=== PATIENT | female | born 1965 | race Caucasian/White ===

== ENCOUNTER 2024-04-07 18:52 | Emergency (ER) | payer BC, SELFPAY ==
[2024-04-07 19:09] VITALS: BP 123/91
--- NOTE | 2024-04-07 19:14 | ED.PDOC.TRB ---
ED Provider Triage
-
Patient seen by provider in Triage?: Seen in Triage
Attestation: A medical screening examination has been initiated by a qualified medical provider. Based on the assessment performed at this time, it has been determined that an emergent medical condition may exist and the patient has been informed
that further medical evaluation and possible additional diagnostic testing may be needed.
HPI: 58yoF here with UTI symptoms x 1 month. Initially prescribed Bactrim by PCP. Went to urgent care 03/26/24 and prescribed Macrobid with temporary relief. Seen by PCP office today and told to go to the ED. C/o frequency, lower abdominal pain, and
intermittent back pain. She is concerned she may have a kidney stone. No fevers, chills, vomiting.
GENERAL: Alert , in no apparent distress
EYE: No visual abnormalities.
NECK: Trachea midline
ENT: No visible abnormalities.
LUNGS: No acute respiratory distress
NEUROLOGICAL: Alert and oriented
SKIN: Skin intact. No visible changes.
MUSCULOSKELETAL: Moving extremities normally
PSYCH: Normal and appropriate interaction.
This is a medical evaluation conducted in person to initiate diagnostic evaluation and provide initial therapeutics. Please see further documentation by the treating clinician.
CBC, CMP, UA, and CT abdomen ordered.
[2024-04-07 19:43] LABS: % Basophils 0.5 % (0-2); % Eosinophils 1.1 % (0-6); % Immature Granulocytes 0.3 % (0-0.5); % Lymphocytes 32.2 % (20.5-51.1); % Monocytes 5.9 % (1.7-9.3); Absolute Basophils 0.1 10^3/uL (0-0.2); Absolute Eosinophils 0.1 10^3/uL (0-0.7); Absolute Lymphocytes 3.4 10^3/uL (1.2-3.4); Absolute Monocytes 0.6 10^3/uL (0.1-0.6); Absolute Neutrophils 6.3 10^3/uL (1.4-6.5); Hematocrit 39.3 % (37.0-47.0); Hemoglobin 13.4 g/dL (12.0-16.0); Mean Corp Hgb Conc. 34.1 g/dL (33.0-37.0); Mean Corpuscular Hgb 29.5 pg (27.0-31.0); Mean Corpuscular Volume 86.6 fL (81.0-99.0); Mean Platelet Volume 10.1 fL (7.4-10.4); Nucleated Red Blood Cells % 0 %; Platelet Count 356 10^3/uL (130-400); Red Blood Cell Count 4.54 10^6/uL (4.20-5.40); Red Cell Dist. Width 13.2 % (11.5-14.5); Urine Albumin Negative (Neg - Trace); Urine Bilirubin Negative (Negative); Urine Character Clear (Clear); Urine Color Yellow; Urine Glucose Negative (Negative); Urine Ketone Negative (Negative); Urine Leukocyte 2+ (Negative); Urine Nitrite Positive (Negative); Urine Occult Blood 4+ (Negative); Urine Urobilinogen Negative (Neg - 1+); White Blood Cell Count 10.5 10^3/uL (4.8-10.8)
[2024-04-07 19:53] LABS: Urine Bacteria Moderate (Negative); Urine White Cell 50-60 /HPF (0-5)
[2024-04-07 20:04] LABS: ALT (SGPT) 17 U/L (0-35); AST (SGOT) 17 U/L (14-36); Albumin 4.2 g/dl (3.5-5.0); Alkaline Phosphatase 128 U/L (38-126); Blood Urea Nitrogen 19 mg/dl (7-17); Carbon Dioxide 26 mmol/L (22-30); Chloride 101 mmol/L (98-107); Glucose 97 mg/dl (70-99); Potassium 3.6 mmol/L (3.5-5.1); Sodium 139 mmol/L (135-145); Total Bilirubin 0.4 mg/dl (0.2-1.3); Total Protein 6.7 g/dl (6.3-8.2); eGFR > 60.00
[2024-04-07 21:11] VITALS: BMI 40.2
[2024-04-07 21:12] VITALS: BP 125/58
--- NOTE | 2024-04-07 21:38 | ED.GENMED ---
History of Present Illness
General
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
Source: patient
Time Seen by Provider: 04/07/24 21:29
History of Present Illness
History of Present Illness:
58yoF with a history of hypertension presenting for evaluation of UTI symptoms x 1 month. She reports being diagnosed with a UTI on 03/04/2024 by her PCP. She was prescribed Bactrim at that time which she completed. Symptoms seem to improve but
then recurred. She was seen at urgent care last week and was again diagnosed with a UTI and placed on Macrobid. She had temporary improvement but symptoms have returned. She was also prescribed Diflucan at some point for a possible yeast
infection. Her symptoms improved with Pyridium. She was again seen at her PCP office today although was not seen by a provider. She was told by the nurse to go to the ED for evaluation. Patient reports dysuria, urinary frequency, and lower
abdominal pain/pressure. She denies any vaginal bleeding, vaginal discharge, vomiting, fevers. She denies any concern for STDs.
Phy Exam
General Physical Exam
General Presentation: well appearing and no apparent distress
General age: appears stated age
General Skin: warm and dry
General Habitus: normal
General Mental: alert
ENT Exam
ENT Exam: normocephalic
Cardiovascular Exam
Cardiovascular Exam: regular rate/rhythm
Pulmonary Exam
Pulmonary Exam: lungs clear, no respiratory distress, no rales, no crackles and no wheezing
Gastrointestinal Exam
Gastrointestinal Exam: non tender, soft, non distended and no cva tenderness
Rowan Coma Scale
Eye Opening: Spontaneous
Verbal Response: Oriented
Motor Response: Obeys Commands
GCS Total Score: 15
Skin Exam
Skin Exam: normal color and warm/dry
Psychiatric Exam
Psychiatric Exam: normal mood/affect
Course
Orders/Labs/Results
Orders:
Orders
04/07/24 19:23
CT Abd/pelvis W Iv Cont Urgent
Comment:
Reason For Exam: Lower abd pain, UTI symptoms
04/07/24 19:36
Complete Blood Count/With Diff Urgent
Comprehensive Metabolic Panel Urgent
Urinalysis Reflex To Culture Urgent
Date Specimen was Collected: 04/07/24
Time Specimen was Collected: 19:31
Urine Microscopic Reflex Cult Urgent
Urine Culture Urgent
[place] Source: U
Specimen Description:
Date Specimen was Collected: 04/07/24
Time Specimen was Collected: 19:31
04/07/24 21:41
Cefdinir [Omnicef] 300 mg PO NOW STA
Abnormal Lab Results
04/07/24
19:36
BUN 19 H mg/dl
(7-17)
Alkaline Phosphatase 128 H U/L
(38-126)
Ur Occult Blood Reflex 4+ A
(Negative)
Urine Nitrite (Reflex) Positive A
(Negative)
Leukocyte Esterase Rfl 2+ A
(Negative)
Urine RBC 3-6 A /HPF
(0-2)
Urine WBC (Reflex) 50-60 A /HPF
(0-5)
Urine Bacteria (Reflex) Moderate A
(Negative)
04/07/24 19:36
04/07/24 19:36
Vital Signs
Initial and Last Documented VS:
Initial Vital Signs
Temp Pulse Resp BP Pulse Ox
98.1 F 91 20 123/91 94
04/07/24 19:09 04/07/24 19:09 04/07/24 19:09 04/07/24 19:09 04/07/24 19:09
Last Documented Vital Signs
Temp Pulse Resp BP Pulse Ox
98.1 F 91 20 127/72 97
04/07/24 19:09 04/07/24 19:09 04/07/24 19:09 04/07/24 21:54 09/30/24 21:54
MDM/Problems Addressed
Differential Diagnosis Includes:
58yoF here with UTI symptoms x 1 month. Has been on multiple rounds of abx for the same. C/o frequency, dysuria, lower abd pain. No f/c. No vomiting. Patient is afebrile and hemodynamically stable. She is well-appearing in no acute distress. No
abdominal or CVA tenderness on exam. Differential diagnosis includes but is not limited to: UTI, vaginitis, pyelonephritis, kidney stone
Patient initially seen in triage. CBC, CMP, UA, and CT abdomen were ordered. Labs unremarkable including normal white count and renal function. UA is nitrite positive with 50-60 WBCs and moderate bacteria consistent with an infection. CT abdomen
is negative for acute findings. Specifically, there is no perinephric stranding or ureterolithiasis.
Given persistent symptoms despite multiple rounds of antibiotics, I offered to admit patient for IV antibiotics. Patient declines admission at this time and prefers to switch to another oral antibiotic. I think this is reasonable as imaging is
reassuring and she is not meeting any SIRS criteria. She was given a prescription for cefdinir and a refill for Pyridium. Patient does have an appointment with [facility] and urology scheduled for next month. Strict ED return precautions were
discussed including fevers, chills, vomiting. She expressed understanding and is agreeable to plan. She was discharged in stable condition.
*Critical Care Note
Total Time (30-74mins, 75-104mins- exclusive of procedures): Not Applicable
ED Attending Note
-
Portions of this chart may have been created with voice recognition software.� Occasional wrong word or��sound alike� substitutions may have occurred due to the inherent limitations of voice recognition software.
Discharge Plan
Departure
Patient Disposition: Home (Routine Discharge)
Date of Disposition: 04/07/24
Time of Disposition: 21:51
Patient with high blood pressure during this ER visit?: No
Discharge Problem:
Urinary tract infection
Instructions: Urinary Tract Infection, Adult (DC)
Prescriptions:
New
cefdinir 300 mg capsule
300 mg PO BID Qty: 13 0RF
phenazopyridine [Pyridium] 200 mg tablet
200 mg PO PC PRN (Reason: Pain) Qty: 6 0RF
Activity Restrictions/Additional Instructions:
Take cefdinir as prescribed. Drink plenty of fluids.
Please follow-up with your family doctor, urology, and OBGYN.
Return to the ER with any worsening symptoms, fevers, chills, vomiting.
Interventions
Interventions:
*Risk Screen - Suicide Last Done: 04/07/24 18:53
*General Assessment Last Done: 04/07/24 19:09
*Neglect/Abuse Screening Last Done: 04/07/24 19:09
ED- Fall Risk Assessment Last Done: 04/07/24 21:11
*ED COVID-19 Vaccine History Last Done: 04/07/24 21:11
*Nursing Disposition Last Done: 04/07/24 22:01
ED-Female Genitourinary Assessment Last Done: 04/07/24 21:11
Discharge Date and Time
Discharge Date/Time: 04/07/24 22:04
Print Language: TRISTANIAN
[2024-04-07] MEDS: OMNICEF 300 MG PO (21:49)
[2024-04-07 21:54] VITALS: BP 127/72
== END 2024-04-07 22:04 | disposition home or self-care (01) ==
LOC: EMR 18:52
PROVIDERS: Physician Assistant; EMERGENCY PHYSICIAN Emergency Medicine; FAMILY PHYSICIAN Family Medicine
DX: R10.30 Lower abdominal pain, unspecified (principal); M54.9 Dorsalgia, unspecified; I10 Essential (primary) hypertension; N39.0 Urinary tract infection, site not specified; Z87.440 Personal history of urinary (tract) infections
CPT/HCPCS: 99284; 74177; 80053; 81003; 81015; 85025; 87086; 87088; 87186; Q9967

== ENCOUNTER → 2025-06-30 13:39 | Outpatient (REF) | payer BC, SELFPAY | LOC: HWRCS 13:39 | PROVIDERS: ATTENDING PHYSICIAN Internal Medicine Cardiovascular Disease; FAMILY PHYSICIAN Family Medicine | DX: R07.2 Precordial pain (principal); R06.09 Other forms of dyspnea | CPT/HCPCS: 93306 ==